=== PATIENT | female | born 2000 | race Caucasian/White ===

== ENCOUNTER 2024-11-01 21:25 | Emergency (ER) | payer MEDICAID ==
[~2024-11-01] VITALS: Ht 152.4 cm; Wt 67.0 kg
[2024-11-01 22:55] VITALS: O2SAT 98
[2024-11-01] MEDS: ACETAMINOPHEN 500MG TABLET PO ONE (23:35)
[2024-11-02 00:35] LABS: CLARITY URINE CLOUDY (CLEAR); COLOR URINE YELLOW (YELLOW); GLUCOSE URINE NEGATIVE (NEGATIVE); KETONES URINE NEGATIVE (NEGATIVE); LEUKOCYTE ESTERASE URINE 3+ (NEGATIVE); NITRITE URINE NEGATIVE (NEGATIVE); OCCULT BLOOD URINE NEGATIVE (NEGATIVE); PH URINE 8.0 (4.5-8.0); PROTEIN URINE NEGATIVE (NEGATIVE); SPECIFIC GRAVITY URINE 1.009 (1.005-1.030); UROBILINOGEN URINE 0.2 E.U./dL (0.2-1.0)
[2024-11-02 01:23] LABS: SQUAMOUS EPITHELIAL CELL URINE 2+ /lpf (RARE/1+)
[2024-11-02 01:27] LABS: BACTERIA URINE 3+; RBC URINE 0-2 /hpf (0-2)
[2024-11-02] MEDS ORDERED: NITR-87 MT (01:33)
[2024-11-02] MEDS ORDERED: TOPUD MT (01:33)
[2024-11-02 01:45] VITALS: BP 105/66; PULSE 87; RESP 14; TEMP 36.7; O2SAT 99
== END 2024-11-02 01:50 | disposition home or self-care (01) ==
LOC: ER 21:25
DX: O26.892 Other specified pregnancy related conditions, second trimester (principal); O23.42 Unspecified infection of urinary tract in pregnancy, second trimester; M54.50 Low back pain, unspecified; N39.0 Urinary tract infection, site not specified; Z3A.26 26 weeks gestation of pregnancy
CPT/HCPCS: 81003; 81025; 93970; 99284